=== PATIENT | male | born 1995 | race Caucasian/White ===

== ENCOUNTER 2018-08-05 19:49 | Emergency (ER) | payer BC ==
[~2018-08-05] VITALS: Ht 185.4 cm; Wt 86.2 kg
[~2018-08-05 19:49] MED LIST: DOXYCYCLINE 10100 MG PO; VICODIN 5-5001 EACH PO
[2018-08-05 20:21] LABS: ABSOLUTE LYMPHOCYTES 1.5 thou/uL (0.8-5.3); ABSOLUTE MONOCYTES 0.6 thou/uL (0.0-1.2); ABSOLUTE NEUTROPHILS 3.5 thou/uL (1.6-8.1); BASOPHILS 0.7 %; EOSINOPHILS 0.5 %; HEMATOCRIT 43.7 % (42.0-52.0); HEMOGLOBIN 15.1 gm/dL (14.0-18.0); LYMPHOCYTES 26.5 %; MCH 30.5 pg (26.0-34.0); MCHC 34.6 g/dL (28.0-37.0); MCV 88.4 fL (80.0-100.0); MONOCYTES 9.8 %; MPV 8.1 fl. (7.2-11.1); NUCLEATED RBCS 0 /100WBC; PLATELET COUNT* 191 thou/uL (150-400); POLYS 62.5 %; RBC 4.95 mil/uL (4.50-6.00); RDW-CV 12.6 % (10.5-14.5); WBC 5.6 thou/uL (4.0-11.0)
[2018-08-05 20:39] LABS: ANION GAP 8 mmol/L (7-16); BUN 13 mg/dL (7-18); CALCIUM 9.2 mg/dL (8.5-10.1); CHLORIDE 104 mmol/L (98-107); CO2 29 mmol/L (21-32); GLUCOSE 91 mg/dL (70-99); POTASSIUM 3.5 mmol/L (3.5-5.1); SODIUM 141 mmol/L (136-145)
[2018-08-05 20:44] LABS: ALBUMIN 4.4 g/dL (3.4-5.0); ALKALINE PHOSPHATASE 90 U/L (46-116); SGOT 22 U/L (15-37); SGPT 35 U/L (30-65); TOTAL BILIRUBIN 0.6 mg/dL (<0.1-1.0); TOTAL PROTEIN 7.5 g/dL (6.4-8.2); TROPONIN-I LEVEL <0.06 ng/mL (<0.06)
[2018-08-05 21:16] VITALS: BP 129/80
--- NOTE | 2018-08-06 16:32 | EKG ---
[place] [address] ELECTROCARDIOGRAM REPORT Name: WALDEMAR SOTO Room: [facility]#: [id number] Admission: 08/05/18 Attend Phys: Discharge: 08/05/18 Date of : [birth year] Report #: [id number] THIS REPORT FOR: //name// [facility] ED Test Date: 2018-08-05 Test Time: 19:59:24 Pat Name: WALDEMAR SOTO Department: Room: Gender: Resource Agent: MEDIC STUDENT : 1995 Requested By: Sophie Sykes Order Number: [id number] MD: Hector Sharma Measurements Intervals [place] Rate: 85 P: -10 OK: 182 QRS: -28 QRSD: 107 T: 3 QT: 337 QTc: 401 Interpretive Statements Sinus rhythm RSR' in V1 or V2, probably normal variant Probable left ventricular hypertrophy No previous ECG available for comparison Electronically Signed On 08-06-2018 16:31:40 CDT by Hector Sharma [email or web address] <ELECTRONICALLY SIGNED> By: Hector Sharma MD, [facility] 08/06/18 [id number] Hector Shamra MD, FACC /EPI
== END 2018-08-05 21:17 | disposition home or self-care (01) ==
LOC: M.ERS 19:49
PROVIDERS: Physician Assistant Surgical
DX: R07.89 Other chest pain (principal); I10 Essential (primary) hypertension